=== PATIENT | female | born 1970 | race Caucasian/White ===

== ENCOUNTER 2018-05-23 12:45 | Emergency (ER) | payer BC ==
[2018-05-23 13:18] VITALS: BP 112/78
[2018-05-23] MEDS ORDERED: Ondansetron 4 MG/2 ML SDV IVPUSH ONE ×2 (13:30→17:01)
[2018-05-23] MEDS ORDERED: Sodium Chloride 0.9% 1,000 ML IV ONE ×2 (13:30→16:59)
[2018-05-23] MEDS ORDERED: Loperamide 2 MG Cap PO STA ×2 (13:30→18:54)
--- NOTE | 2018-05-23 13:31 | EDM.PDOC ---
ED HPI GENERAL MEDICAL PROBLEM - General Chief Complaint: Gastrointestinal Problem Stated Complaint: STOMACH FLU Time Seen by Provider: 05/23/18 13:05 Source of Information: Reports: Patient, RN Notes Reviewed History Limitations: Reports: No Limitations - History of Present Illness INITIAL COMMENTS - FREE TEXT/NARRATIVE: The patient states that she developed nausea, vomiting, watery diarrhea, generalized weakness, a dry mouth, and generalized body aches around 03:00 this morning. She reports developing left upper quadrant abdominal pain this morning after she vomited. She has had a slight cough, but denies dyspnea or wheezing. No recent fever. No recent chest pain or palpitations. No urinary symptoms. No prior similar symptoms. The patient states that she has not taken any [id number] or home remedies to try to treat her symptoms. The patient states that her grandson vomited last night. The patient denies eating any bad food recently. No recent antibiotics. No recent travel. The patient's PCP is Lina Ovalles. The patient states that her vaccinations are up-to-date, although she did not receive an influenza vaccine this season. Lower Chest Pain Score (Numeric/FACES): 5 - Related Data Allergies Allergy/AdvReac Type Severity Reaction Status Date / Time erythromycin base Allergy Rash Verified 05/23/18 13:04 morphine Allergy Rash Verified 05/23/18 13:04 Home Meds: Home Meds Generic Adderall. 30 mg PO DAILY 05/23/18 [History] Levothyroxine 150 mcg PO ACBREAKFAST 05/23/18 [History] Ondansetron [Zofran ODT] 1 tab PO Q8H PRN #10 tab.dis 05/23/18 [Rx] Past Medical History Respiratory History: Reports: Asthma (suspected, not tested) Endocrine/Metabolic History: Reports: Hypothyroidism - Past Surgical History HEENT Surgical History: Reports: Naso-Sinus Surgery, Tonsillectomy GI Surgical History: Reports: Cholecystectomy (2009) Female Surgical History: Reports: D&C (x 1), Hysterectomy, Salpingo- Oophorectomy Musculoskeletal Surgical History: Reports: Other (See Below) (Right knee, open) Social & Family History - Tobacco Use Smoking Status *Q: Never Smoker - Alcohol Use Alcohol Use History: Yes Alcohol Use Frequency: Socially - Recreational Drug Use Recreational Drug Use: No - Living Situation & Occupation Living situation: Reports: , with Spouse Occupation: Employed (Teacher) ED ROS GENERAL - Review of Systems Review Of Systems: ROS reveals no pertinent complaints other than HPI. ED EXAM, GI/ABD - Physical Exam Exam: See Below Exam Limited By: No Limitations General Appearance: Alert, WD/WN, No Apparent Distress Eyes: Bilateral: Normal Appearance, EOMI Ears: Normal External Exam, Hearing Grossly Normal Nose: Normal Inspection Throat/Mouth: Normal Inspection, Normal Lips, Normal Voice, No Airway Compromise Head: Atraumatic, Normocephalic Neck: Normal Inspection, Full Range of Motion Respiratory/Chest: No Respiratory Distress, Lungs Clear, Normal Breath Sounds, No Accessory Muscle Use Cardiovascular: Normal Peripheral Pulses, Regular Rate, Rhythm, No Edema, No Gallop, No JVD, No Murmur, No Rub GI/Abdominal Exam: Normal Bowel Sounds, Soft, No Organomegaly, No Distention, No Abnormal Bruit, No Mass, Tender (In the epigastrium and suprapubic regions only. Nontender elsewhere.) (Female) Exam: Deferred Rectal (Female) Exam: Deferred Back Exam: Normal Inspection, Full Range of Motion. No: CVA Tenderness (L), CVA Tenderness (R) Extremities: Normal Inspection, Normal Range of Motion, No Pedal Edema, Normal Capillary Refill Neurological: Alert, Oriented, Normal Cognition, No Motor/Sensory Deficits Psychiatric: Normal Affect Skin Exam: Warm, Dry, Intact, Normal Color, No Rash Course - Vital Signs Last Recorded V/S: Last Vital Signs Temp 36.1 C 05/23/18 13:06 Pulse 98 05/23/18 13:06 Resp 17 05/23/18 13:06 BP 112/78 05/23/18 13:06 Pulse Ox 99 05/23/18 13:06 Orthostatic Blood Pressure [ 129/87 Standing] Orthostatic Blood Pressure [ 131/80 Sitting] Orthostatic Blood Pressure [ 121/74 Supine] - Orders/Labs/Meds Orders: Active Orders 24 hr Category Date Time Status Orthostatic Vital Signs [RC] STAT Care 05/23/18 13:29 Active Orthostatic Vital Signs [RC] STAT Care 05/23/18 14:08 Active Orthostatic Vital Signs [RC] STAT Care 05/23/18 16:59 Active Labs: Laboratory Tests 02/23/19 02/23/19 02/23/19 Range/Units 13:50 13:50 15:25 WBC 4.87 (3.98-10.04) K/mm3 RBC 5.22 (3.98-5.22) M/mm3 Hgb 15.3 (11.2-15.7) gm/L Hct 45.4 H (34.1-44.9) % MCV 87.0 (79.4-94.8) fl MCH 29.3 (25.6-32.2) pg MCHC 33.7 (32.2-35.5) g/dl RDW Std Deviation 43.2 (36.4-46.3) fL Plt Count 137 L (182-369) K/mm3 MPV 10.2 (9.4-12.3) fl Neutrophils % (Manual) 86 H (40-60) % Band Neutrophils % 0 (0-10) % Lymphocytes % (Manual) 12 L (20-40) % Atypical Lymphs % 0 % Monocytes % (Manual) 2 (2-10) % Eosinophils % (Manual) 0 L (0.7-5.8) % Basophils % (Manual) 0 L (0.1-1.2) Platelet Estimate Adequate RBC Morph Comment Normal Sodium 145 (136-145) mEq/L Potassium 3.9 (3.5-5.1) mEq/L Chloride 108 H (98-107) mEq/L Carbon Dioxide 25 (21-32) mEq/L Anion Gap 15.9 H (5-15) BUN 16 (7-18) mg/dL Creatinine 0.9 (0.55-1.02) mg/dL Est Cr Clr Drug Dosing 79.89 mL/min Estimated GFR (MDRD) > 60 (>60) mL/min BUN/Creatinine Ratio 17.8 (14-18) Glucose 104 (74-106) mg/dL Calcium 9.2 (8.5-10.1) mg/dL Magnesium 1.9 (1.8-2.4) mg/dl Total Bilirubin 0.6 (0.2-1.0) mg/dL AST 18 (15-37) U/L ALT 22 (14-59) U/L Alkaline Phosphatase 103 (46-116) U/L Total Protein 7.7 (6.4-8.2) g/dl Albumin 4.3 (3.4-5.0) g/dl Globulin 3.4 gm/dL Albumin/Globulin Ratio 1.3 (1-2) Lipase 88 (73-393) U/L Urine Color Yellow (Yellow) Urine Appearance Clear (Clear) Urine pH 5.5 (5.0-8.0) Ur Specific [place] > or = 1.030 (1.005-1.030) Urine Protein Negative (Negative) Urine Glucose (UA) Negative (Negative) Urine Ketones Negative (Negative) Urine Occult Blood Negative (Negative) Urine Nitrite Negative (Negative) Urine Bilirubin Negative (Negative) Urine Urobilinogen 0.2 (0.2-1.0) Ur Leukocyte Esterase Negative (Negative) Urine RBC 0-5 (0-5) /hpf Urine WBC 0-5 (0-5) /hpf Ur Epithelial Cells 0-5 (0-5) /hpf Urine Bacteria Few (FEW) /hpf Urine Mucus Moderate H (FEW) /hpf Meds: Medications Discontinued Medications Generic Name Dose Route Start Last Admin Trade Name Freq PRN Reason Stop Dose Admin Sodium Chloride 1,000 mls @ 999 mls/hr 05/23/18 13:30 05/23/18 13:46 Normal Saline IV 05/23/18 14:30 999 mls/hr ONETIME ONE Administration Sodium Chloride 1,000 mls @ 999 mls/hr 05/23/18 16:59 05/23/18 17:19 Normal Saline IV 05/23/18 17:59 999 mls/hr ONETIME ONE Administration Loperamide HCl 4 mg 05/23/18 13:30 05/23/18 13:47 Imodium PO 05/23/18 13:31 4 mg ONETIME STA Administration Loperamide HCl 4 mg 05/23/18 18:54 05/23/18 19:13 Imodium PO 05/23/18 18:55 4 mg ONETIME STA Administration Ondansetron HCl 4 mg 05/23/18 13:30 05/23/18 13:46 Zofran IVPUSH 05/23/18 13:31 4 mg ONETIME ONE Administration Ondansetron HCl 4 mg 05/23/18 17:01 05/23/18 17:19 Zofran IVPUSH 05/23/18 17:02 4 mg ONETIME ONE Administration - Re-Assessments/Exams Free Text/Narrative Re-Assessment/Exam: 05/23/18 13:31 The patient appears to be suffering from gastroenteritis, likely viral, as her grandson was similarly ill. I have ordered orthostatics, to make sure that she is not significantly intravascularly depleted, along with blood work, and, because she had suprapubic tenderness even though she denies urinary symptoms, I have ordered a urinalysis. In the meantime, the patient will receive IV fluid , loperamide, and Zofran. 05/23/18 14:08 The patient does not quite meet criterion for orthostasis, but she is very close. As above, the patient is already receiving 1 L of NS; we will recheck orthostatics after it is infused. 05/23/18 16:15 The patient's urinalysis is normal. We are awaiting the repeat orthostatics. 05/23/18 16:59 Oddly enough, following 1 L of NS, the patient now meets criterion for orthostasis. I have ordered a second liter of IV fluid, then will recheck orthostatics. 05/23/18 18:49 Following 2 L of NS, the patient is no longer orthostatic. Test results discussed with the patient. She appears to have viral gastroenteritis. She will be given 4 mg of loperamide, and I will send in a prescription for Zofran ODT. She may safely be discharged home. Departure - Departure Time of Disposition: 18:49 Disposition: Home, Self-Care 01 Condition: Fair Clinical Impression: Viral gastroenteritis - Discharge Information *PRESCRIPTION DRUG MONITORING PROGRAM REVIEWED*: Not Applicable *COPY OF PRESCRIPTION DRUG MONITORING REPORT IN PATIENT GWENDOLYN: Not Applicable Prescriptions: Ondansetron [Zofran ODT] 1 tab PO Q8H PRN #10 tab.dis PRN Reason: Nausea/Vomiting Instructions: Viral Gastroenteritis, Adult, [id number] Referrals: Lina Ovalles PA-C [Primary Care Provider] - Forms: ED Department Discharge Additional Instructions: You were seen in the emergency room for nausea, vomiting, watery diarrhea, feeling weak, feeling dry, with body aches. Workup in the ER included blood work, a urinalysis, and positional blood pressure checks. Your blood work and urinalysis were normal, but your blood pressure dropped excessively between lying and standing, indicating that you were dry. You were given a total of 2 L of IV fluid in the ER, and your blood pressures normalized. Based on your history, physical exam, and ER tests, you are most likely suffering from a viral gastroenteritis. As discussed, unfortunately, there are no medicines to get rid of viral gastroenteritis - it will have to run its course. You have been started on antidiarrheal medicine loperamide (Imodium). Take 1 tablet after each loose bowel movement, to a maximum of 8 tablets within a 24- hour period (you were given 2 tablets in the ER). You were given the anti-nausea medicine Zofran. A prescription for Zofran has been sent to the [facility], located in the [facility] grocery store. Dissolve one tablet of Zofran on your tongue up to every 8 hours, as needed for nausea/vomiting. Stay adequately hydrated. Gatorade or Powerade are best. If you are feeling hungry, we recommend a bland diet, such as oatmeal, rice, or applesauce. Follow-up with your PCP, Lina Ovalles, as needed. If any other problems, please do not hesitate to return to the ER. - My Orders Last 24 Hours: My Active Orders 05/23/18 13:29 Orthostatic Vital Signs [RC] STAT 05/23/18 14:08 Orthostatic Vital Signs [RC] STAT 05/23/18 16:59 Orthostatic Vital Signs [RC] STAT - Assessment/Plan Last 24 Hours: My Active Orders 05/23/18 13:29 Orthostatic Vital Signs [RC] STAT 05/23/18 14:08 Orthostatic Vital Signs [RC] STAT 05/23/18 16:59 Orthostatic Vital Signs [RC] STAT
== END 2018-05-23 19:14 | disposition home or self-care (01) ==
LOC: JD.ED 12:45
DX: A08.4 Viral intestinal infection, unspecified (principal); E03.9 Hypothyroidism, unspecified; Z88.5 Allergy status to narcotic agent; Z98.890 Other specified postprocedural states; Z90.49 Acquired absence of other specified parts of digestive tract; Z90.710 Acquired absence of both cervix and uterus; Z90.722 Acquired absence of ovaries, bilateral; Z88.1 Allergy status to other antibiotic agents
CPT/HCPCS: 36415; 80053; 81001; 83690; 83735; 85007; 85027; 96361; 96374; 96376; 99284; A9270; J2405; J7040

== ENCOUNTER 2018-09-26 07:18 | Emergency (ER) | payer BC ==
[2018-09-26] MEDS ORDERED: Sodium Chloride 0.9% 10 ML Syringe FLUSH PRN (07:47)
[2018-09-26] MEDS ORDERED: Sodium Chloride 0.9% 1,000 ML IV SCH (08:00)
[2018-09-26] MEDS ORDERED: HYDROmorphone 0.5 MG/0.5 ML Syringe IVPUSH ONE ×2 (09:08→14:38)
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
[2018-09-26 14:34] VITALS: BP 127/80
[2018-09-26] MEDS ORDERED: HYDROmorphone 0.5 MG/0.5 ML Syringe ONE (14:37)
[2018-09-26] MEDS ORDERED: Magnesium Citrate Solution 296 ML Bottle ONE (14:47)
[2018-09-26] MEDS ORDERED: Magnesium Citrate Solution 296 ML Bottle PO ONE (15:08)
--- NOTE | 2018-09-28 07:17 | US ---
Bilateral lower extremity deep venous ultrasound: Duplex and color flow imaging was obtained of the right and left common femoral, proximal greater saphenous, superficial femoral, popliteal, posterior tibial and peroneal veins. Comparison: No previous venous imaging. Findings: Normal phasic flow, augmentation and compression are seen. Impression: 1. No evidence of deep venous thrombosis within the right or left lower extremities. Diagnostic code #1 I agree with preliminary report from [facility], finalized on 09/26/18, 10:48 AM Central Time
== END 2018-09-26 15:10 | disposition home or self-care (01) ==
LOC: JD.ED 07:18
DX: R55 Syncope and collapse (principal); D64.89 Other specified anemias; J45.909 Unspecified asthma, uncomplicated; E03.9 Hypothyroidism, unspecified; Z79.899 Other long term (current) drug therapy
CPT/HCPCS: 36415; 36430; 80053; 83735; 84484; 85025; 86850; 86900; 86901; 86922; 93005; 93970; 96361; 96374; 96376; 99285; A9270; J1170; J7040; P9016; 93010; 99284

== ENCOUNTER 2021-11-14 08:12 | Day surgery (SDC) | payer BC ==
[~2021-11-14 08:12] MED LIST: EPINEPHrine 1 MG/ML 30 ML MDV IRR SCH; Lactated Ringers 1,000 ML IV SCH; Lidocaine 1% 5 ML VIAL ONE; Lidocaine 1%/Sod Bicarbonate in NS 8.4% 1 ML Syringe IDERM PRN; Midazolam 1 MG/ML 2 ML SDV ONE; Propofol 200 MG/20 ML SDV ONE; Sodium Chloride 0.9% 10 ML Syringe FLUSH PRN; Sodium Chloride 0.9% 10 ML Syringe FLUSH SCH; fentaNYL 100 MCG/2 ML SDV ONE
[2021-11-14] MEDS ORDERED: Scopolamine 1.5 MG Transdermal Patch TOP ONE (08:20)
[2021-11-14] MEDS ORDERED: ceFAZolin 2 GM Vial ONE (08:35)
[2021-11-14] MEDS ORDERED: Dexamethasone 4 MG/ML 5 ML MDV ONE (08:36)
[2021-11-14] MEDS ORDERED: Ondansetron 4 MG/2 ML SDV ONE (08:36)
[2021-11-14] MEDS ORDERED: Bupivacaine 0.25% 10 ML SDV ONE (09:00)
[2021-11-14] MEDS ORDERED: fentaNYL 100 MCG/2 ML SDV ONE (10:12)
[2021-11-14] MEDS ORDERED: Ketamine 500 mg/10 ML MDV ONE (10:18)
[2021-11-14] MEDS ORDERED: Lactated Ringers 1,000 ML ONE (10:18)
[2021-11-14] MEDS ORDERED: Ondansetron 4 MG/2 ML SDV IVPUSH PRN (10:25)
[2021-11-14] MEDS ORDERED: fentaNYL 100 MCG/2 ML SDV IVPUSH PRN (10:25)
[2021-11-14] MEDS ORDERED: Ketorolac 30 MG/ML SDV ONE (10:41)
[2021-11-14] MEDS ORDERED: Acetaminophen/HYDROcodone 325-5 MG Tab PO ONE (12:45)
[2021-11-14 12:52] VITALS: BP 136/89; PULSE 76
== END 2021-11-14 12:45 | disposition home or self-care (01) ==
LOC: JD.SDS 08:12
PROVIDERS: ATTEND Orthopaedic Surgery
DX: S83.242A Other tear of medial meniscus, current injury, left knee, initial encounter (principal); M94.262 Chondromalacia, left knee; E03.9 Hypothyroidism, unspecified; J45.909 Unspecified asthma, uncomplicated; D64.9 Anemia, unspecified; R04.0 Epistaxis; Z79.890 Hormone replacement therapy; F41.9 Anxiety disorder, unspecified; F32.A Depression, unspecified; Z88.1 Allergy status to other antibiotic agents; Z88.5 Allergy status to narcotic agent; Z91.030 Bee allergy status; Z79.899 Other long term (current) drug therapy; Z98.890 Other specified postprocedural states
CPT/HCPCS: 29881; A9270; J0171; J0690; J1100; J1885; J2250; J2405; J2704; J3010; J3490; J7120; 01400

== ENCOUNTER 2022-01-05 23:03 | Emergency (ER) | payer BC ==
[2022-01-05 23:50] VITALS: BP 157/85; PULSE 84
[2022-01-06] MEDS ORDERED: Sodium Chloride 0.9% 1,000 ML IV ONE (00:21)
[2022-01-06] MEDS ORDERED: Ondansetron 4 MG/2 ML SDV IVPUSH ONE (01:12)
== END 2022-01-06 03:32 | disposition home or self-care (01) ==
LOC: JD.ED 23:03
DX: R10.84 Generalized abdominal pain (principal); E03.9 Hypothyroidism, unspecified; Z88.1 Allergy status to other antibiotic agents; Z88.6 Allergy status to analgesic agent; Z88.5 Allergy status to narcotic agent; Z79.899 Other long term (current) drug therapy; Z90.49 Acquired absence of other specified parts of digestive tract; Z90.710 Acquired absence of both cervix and uterus
CPT/HCPCS: 36415; 74177; 80053; 81003; 83605; 83690; 83735; 85025; 96361; 96374; 99284; J2405; J7030

== ENCOUNTER 2023-04-13 15:25 | Emergency (ER) | payer BC ==
[2023-04-13 15:51] VITALS: PULSE 92
[2023-04-13] MEDS ORDERED: Sodium Chloride 0.9% 10 ML Syringe FLUSH PRN (15:52)
[2023-04-13] MEDS ORDERED: Sodium Chloride 0.9% 1,000 ML IV ONE (15:58)
[2023-04-13] MEDS ORDERED: Prochlorperazine 10 MG/2 ML SDV IVPUSH ONE (15:58)
[2023-04-13] MEDS ORDERED: Ketorolac 30 MG/ML SDV IVPUSH ONE (15:58)
[2023-04-13 16:53] LABS: BASOPHILS PERCENT AUTO 0.2 % (0.0-1.0); EOSINOPHILS PERCENT AUTO 0.2 % (0.0-6.0); HEMATOCRIT 41.5 % (37.0-47.0); HEMOGLOBIN 13.9 gm/dl (12.0-16.0); IMMATURE GRAN ABSOLUTE AUTO 0.03 K/mm3 (0.00-0.05); IMMATURE GRAN PERCENT AUTO 0.5 % (0.0-0.4); LYMPHOCYTES PERCENT AUTO 17.6 % (24.0-44.0); MEAN CORPUSCULAR HEMOGLOBIN 30.6 pg (28.0-32.0); MEAN CORPUSCULAR HGB CONC 33.5 g/dl (32.0-36.0); MEAN CORPUSCULAR VOLUME 91.4 fl (83.0-99.0); MEAN PLATELET VOLUME 10.4 fl (9.4-12.3); MONOCYTES ABSOLUTE AUTO 0.8 K/mm3 (0.0-0.8); MONOCYTES PERCENT AUTO 13.7 % (0.0-8.0); NEUTROPHILS PERCENT AUTO 67.8 % (41.0-71.0); PLATELET COUNT,PLT 141 K/mm3 (150-400); RED BLOOD CELL COUNT 4.54 M/mm3 (4.10-5.30); WHITE BLOOD CELL COUNT,WBC 5.84 K/mm3 (3.9-11.3)
[2023-04-13 17:00] LABS: ALBUMIN 3.6 g/dl (3.4-5.0); ANION GAP 14.4 (5-15); BILIRUBIN TOTAL 0.5 mg/dL (0.2-1.0); C-REACTIVE PROTEIN 4.7 mg/dL (<1.0); CALCIUM 8.9 mg/dL (8.5-10.1); EST CRCL DRUG DOSING (CG) 67.99 mL/min; MAGNESIUM 1.9 mg/dL (1.8-2.4); POTASSIUM,K 3.4 mEq/L (3.5-5.1); PROTEIN TOTAL,TP 7.1 g/dl (6.4-8.2)
[2023-04-13 17:27] LABS: CORONAVIRUS COVID-19 NAA POSITIVE (NEGATIVE); INFLUENZA A NAA NEGATIVE (NEGATIVE); RESPIRATORY SYNCYTIAL VIR NAA NEGATIVE (NEGATIVE)
[2023-04-13 17:53] VITALS: BP 142/95
== END 2023-04-13 17:52 | disposition home or self-care (01) ==
LOC: JD.ED 15:25
DX: U07.1 COVID-19 (principal); G43.909 Migraine, unspecified, not intractable, without status migrainosus; J45.909 Unspecified asthma, uncomplicated; E03.9 Hypothyroidism, unspecified; Z79.899 Other long term (current) drug therapy; Z88.5 Allergy status to narcotic agent; Z88.1 Allergy status to other antibiotic agents
CPT/HCPCS: 0241U; 36415; 80053; 83735; 85025; 86140; 96374; 96375; 99283; J0780; J1885; J3490; J7030; 99284

== ENCOUNTER 2024-09-06 06:30 | Day surgery (SDC) | payer BC ==
[2024-09-06] MEDS: Lactated Ringers 1,000 ML IV SCH (06:25)
[2024-09-06] MEDS ORDERED: Phenylephrine 1% 10 MG/ML SDV ONE (06:42)
[2024-09-06] MEDS ORDERED: Ropivacaine 0.5% 5 MG/ML 30 ML SDV ONE (06:42)
[2024-09-06] MEDS ORDERED: propofoL 500 MG/50 ML 50 ML ONE (06:43)
[2024-09-06] MEDS ORDERED: fentaNYL 100 MCG/2 ML SDV ONE (06:44)
[2024-09-06] MEDS ORDERED: dexmedeTOMIDine HCl 200 MCG/2 ML SDV ONE (06:47)
[2024-09-06] MEDS ORDERED: Sodium Chloride 0.9% 100 ML ONE (06:55)
[2024-09-06] MEDS ORDERED: Sodium Chloride 0.9% 10 ML Syringe FLUSH PRN (07:41)
[2024-09-06] MEDS ORDERED: Ondansetron 4 MG/2 ML SDV ONE (08:00)
[2024-09-06] MEDS ORDERED: ceFAZolin 2 GM Vial ONE (08:17)
[2024-09-06] MEDS ORDERED: ePHEDrine 50 MG/ML SDV ONE (08:25)
[2024-09-06] MEDS ORDERED: Lactated Ringers 1,000 ML ONE (08:37)
[2024-09-06] MEDS ORDERED: Propofol 200 MG/20 ML SDV ONE (08:55)
[2024-09-06] MEDS ORDERED: Sodium Chloride 0.9% 10 ML Syringe FLUSH SCH (09:00)
[2024-09-06] MEDS: Morphine 8 MG, EPINEPHrine 0.3 MG, Cefuroxime 750 MG, Ketorolac 30 MG, Sodium Chloride ... PRN (09:04)
[2024-09-06] MEDS: VANCOmycin 1 GM SDV ONE (09:09)
[2024-09-06] MEDS: Tranexamic Acid 1,000 MG/10 ML Vial ONE (09:09)
[2024-09-06] MEDS ORDERED: Ondansetron 4 MG/2 ML SDV IVPUSH PRN (09:44)
[2024-09-06] MEDS ORDERED: HYDROmorphone 0.5 MG/0.5 ML Syringe IVPUSH PRN (09:44)
[2024-09-06] MEDS ORDERED: fentaNYL 100 MCG/2 ML SDV IVPUSH PRN (09:44)
[2024-09-06] MEDS: Acetaminophen 325 MG Tab PO ONE (11:30)
[2024-09-06] MEDS: Acetaminophen/HYDROcodone 325-5 MG Tab PO PRN (12:31)
[2024-09-06 14:02] VITALS: BP 118/71; PULSE 78
== END 2024-09-06 13:40 | disposition home or self-care (01) ==
LOC: JD.SDS 06:30
PROVIDERS: ATTEND Orthopaedic Surgery
DX: M17.12 Unilateral primary osteoarthritis, left knee (principal); J45.909 Unspecified asthma, uncomplicated; I10 Essential (primary) hypertension; E78.5 Hyperlipidemia, unspecified; E03.9 Hypothyroidism, unspecified; Z79.890 Hormone replacement therapy; Z79.899 Other long term (current) drug therapy; Z88.5 Allergy status to narcotic agent; Z91.030 Bee allergy status; Z88.1 Allergy status to other antibiotic agents
CPT/HCPCS: 0055T; 27447; 64447; 73560; 97110; 97116; 97161; A9270; C1713; C1776; J0171; J0690; J0697; J1885; J2272; J2371; J2405; J2704; J2795; J3010; J7120; 01402; J3490